=== PATIENT | female | born 1955 | race Caucasian/White ===

== ENCOUNTER 2019-12-10 18:12 | Emergency (ER) | payer OTHER ==
[~2019-12-10] VITALS: Ht 167.6 cm; Wt 61.2 kg
[2019-12-10] MEDS ORDERED: TDAP DIPH,PERTUSS,TET VAC/PF 0.5 ML DISP.SYRIN IM ONE ×2 (18:27→18:45)
--- NOTE | 2019-12-10 18:31 | NUR ---
PT IS IN ROOM #2A. DR KEANE EVALUATED THE PT.
[2019-12-10] MEDS ORDERED: LIDOCAINE HCL 1% 20 ML VIAL IJ ONE (18:45)
[2019-12-10 18:53] VITALS: BP 131/72
--- NOTE | 2019-12-10 18:53 | NUR ---
PT WAS D/C'd TO HOME. D/C INSTRUCTIONS GIVEN TO THE PT.
== END 2019-12-10 18:54 | disposition home or self-care (01) ==
LOC: ER 18:12
DX: S61.217A Laceration without foreign body of left little finger without damage to nail, initial encounter (principal); W26.0XXA Contact with knife, initial encounter; Y93.G1 Activity, food preparation and clean up; Y92.010 Kitchen of single-family (private) house as the place of occurrence of the external cause
CPT/HCPCS: 12001; 90471; 90715; 99283; J3490; A4217; A4663

== ENCOUNTER 2019-12-22 16:58 | Emergency (ER) | payer OTHER ==
[~2019-12-22] VITALS: Ht 167.6 cm; Wt 61.2 kg
--- NOTE | 2019-12-22 17:30 | NUR ---
PATIENT WAS MSE BY GLENN IN ROOM 04A.
--- NOTE | 2019-12-22 18:00 | NUR ---
Patient discharged to home in stable condition. Written and verbal after care instructions given. Patient verbalizes understanding of instructions. Stressed follow up or return to ER for worsening s/s.
[2019-12-22 18:01] VITALS: BP 106/67
== END 2019-12-22 18:04 | disposition home or self-care (01) ==
LOC: ER 17:00
DX: S61.217D Laceration without foreign body of left little finger without damage to nail, subsequent encounter (principal); W45.8XXD Other foreign body or object entering through skin, subsequent encounter
CPT/HCPCS: A4663